=== PATIENT | female | born 1990 | race Caucasian/White ===

== ENCOUNTER 2020-02-27 12:50 | Inpatient (IN) | payer MEDICAID, OTHER ==
[~2020-02-27] VITALS: Ht 170.2 cm; Wt 99.8 kg
[~2020-02-27 12:50] MED LIST: ALBU8HFA IH; ARIP2 PO; GABA-1201 PO; METF-960 PO; MULT-950 PO
[2020-02-27 14:27] LABS: BASOPHILS % (AUTO) 0.9 % (0.0-2.0); EOSINOPHILS % (AUTO) 0.6 % (1.0-6.0); HEMATOCRIT 38.5 % (36-46); HEMOGLOBIN 12.8 g/dL (12.0-16.0); LYMPHOCYTES # (AUTO) 2.2 K/uL (1.0-4.8); LYMPHOCYTES % (AUTO) 26.5 % (22.0-44.0); MEAN CORPUSCULAR HEMOGLOBIN 28.1 pg (26.0-34.0); MEAN CORPUSCULAR HGB CONC 33.4 G/dL (31.0-37.0); MEAN CORPUSCULAR VOLUME 84 fL (80-100); MONOCYTES # (AUTO) 0.8 K/uL (0.1-1.0); MONOCYTES % (AUTO) 9.4 % (2.0-9.0); NEUTROPHILS # (AUTO) 5.3 K/uL (1.8-7.7); NEUTROPHILS % (AUTO) 62.6 % (40.0-70.0); PLATELET COUNT (AUTO) 397 K/uL (150-450); RED BLOOD CELL COUNT(AUTO) 4.58 MIL/uL (4.00-5.20); RED CELL DISTRIBUTION WIDTH 13.2 % (11.5-14.5)
[2020-02-27 14:44] LABS: ANION GAP 9 mmol/L (8-16); CALCIUM, TOTAL 9.3 mg/dL (8.8-10.5); CARBON DIOXIDE 28 mmol/L (22-29); CHLORIDE 101 mmol/L (98-107); CREATININE 0.53 mg/dL (0.60-1.30); GLOMERULAR FILTR. RATE CALC > 60 mL/min (>60); GLUCOSE,RANDOM 247 mg/dL (70-110); POTASSIUM 3.8 mmol/L (3.5-5.1); SODIUM SERUM 138 mmol/L (136-145); UREA NITROGEN, BLOOD 12 mg/dL (7-18)
[2020-02-27 15:04] LABS: ALANINE AMINOTRANSFERASE 44 U/L (12-78); ALBUMIN 3.5 g/dL (3.4-5.0); ALKALINE PHOSPHATASE 76 U/L (46-116); ASPARTATE AMINOTRANSFERASE 12 U/L (15-37); BILIRUBIN,TOTAL 0.4 mg/dL (0.1-1.0); TOTAL PROTEIN, SERUM 7.9 g/dL (6.4-8.2)
[2020-02-27 15:11] LABS: AMPHET/METH SCREEN,URINE POSITIVE (NEGATIVE); BARBITURATE SCREEN, URINE NEGATIVE (NEGATIVE); BENZODIAZEPINES SCREEN,URINE NEGATIVE (NEGATIVE); CANNABINOID SCREEN,URINE POSITIVE (NEGATIVE); COCAINE SCREEN,URINE NEGATIVE (NEGATIVE); METHADONE SCREEN, URINE NEGATIVE (NEGATIVE); OPIATE SCREEN,URINE NEGATIVE (NEGATIVE)
[2020-02-27 15:15] LABS: PHENCYCLIDINE SCREEN,URINE NEGATIVE (NEGATIVE)
[2020-02-27] MEDS ORDERED: HALOPERIDOL 5 MG TABLET PO ONE (16:45)
[2020-02-27] MEDS ORDERED: LORazepam 2 MG TABLET PO ONE (16:45)
[2020-02-27 17:23] LABS: HCG,QUANTITATIVE < 1 mIU/mL (0-6)
[2020-02-27] MEDS ORDERED: DiphenhydrAMINE HCL 25 MG CAPSULE PO ONE (18:15)
[2020-02-27] MEDS ORDERED: CloNIDine HCL 0.1 MG TABLET PO PRN (20:45)
[2020-02-27] MEDS ORDERED: ALBUTEROL SULFATE HFA 90 MCG/PUFF 8 GM INHALER IH PRN (20:45)
[2020-02-27] MEDS ORDERED: GuaiFENesin/D-METHORPHAN [SUGAR-FREE] 200-20MG/10 ML SYRUP UDCUP PO PRN (20:45)
[2020-02-27] MEDS ORDERED: ONDANSETRON HCL 4 MG TABLET PO PRN (20:45)
[2020-02-27] MEDS ORDERED: MAGNESIUM HYDROXIDE SUSPENSION 30 ML UDCUP PO PRN (20:45)
[2020-02-27] MEDS ORDERED: ACETAMINOPHEN 325 MG TABLET PO PRN (20:45)
[2020-02-27] MEDS ORDERED: LOPERAMIDE HCL 2 MG CAPSULE PO PRN (20:45)
[2020-02-27] MEDS ORDERED: PETROLATUM,WHITE 28 GM JELLY TP PRN (20:45)
[2020-02-27] MEDS ORDERED: MAG HYDROX/AL HYDROX/SIMETH ES 30 ML SUSPENSION UDCUP PO PRN (20:45)
[2020-02-27 22:01] VITALS: BP 110/70
[2020-02-27 22:20] LABS: GLUCOSE,POINT OF CARE 252 MG/DL (70-110)
[2020-02-27 23:20] LABS: GLUCOMETER DEV NAME(LOC) BV3S.; GLUCOSE,POINT OF CARE 231 MG/DL (70-110)
[2020-02-28] MEDS ORDERED: PNEUMOCOCCAL VACCINE POLYVALENT 0.5 ML VIAL [PPSV23] IM ONE (00:30)
[2020-02-28] MEDS: IBUPROFEN 400 MG TABLET PO PRN ×2 (03:38→20:59)
[2020-02-28] MEDS: LORazepam 2 MG TABLET PO PRN ×2 (04:13→10:10)
[2020-02-28] MEDS: DOCUSATE SODIUM 100 MG CAPSULE PO PRN (04:13)
[2020-02-28 04:14] VITALS: BP 115/71
[2020-02-28] MEDS ORDERED: DiphenhydrAMINE HCL 50 MG/ML VIAL ONE (04:52)
[2020-02-28] MEDS ORDERED: HALOPERIDOL LACTATE 5 MG/ML VIAL ONE (04:52)
[2020-02-28] MEDS ORDERED: DiphenhydrAMINE HCL 50 MG/ML VIAL IM ONE (05:00)
[2020-02-28] MEDS ORDERED: HALOPERIDOL LACTATE 5 MG/ML VIAL IM ONE (05:00)
[2020-02-28 08:27] VITALS: BP 118/74
[2020-02-28] MEDS: MULTIVITAMINS, THERAPEUTIC TABLET PO SCH (08:59)
[2020-02-28] MEDS: NICOTINE 14 MG/24 HOUR PATCH TD PRN (09:21)
[2020-02-28] MEDS: HALOPERIDOL 5 MG TABLET PO PRN ×2 (10:10→16:50)
[2020-02-28] MEDS: GlipiZIDE 5 MG TABLET PO SCH (16:50)
[2020-02-28] MEDS: PRAZOSIN HCL 2 MG CAPSULE PO SCH (20:24)
[2020-02-28] MEDS: BusPIRone HCL 10 MG TABLET PO SCH (20:24)
[2020-02-28] MEDS: OLANZapine 10 MG TABLET PO SCH (20:24)
[2020-02-28 20:59] VITALS: BP 123/70
[2020-02-29] MEDS: GlipiZIDE 5 MG TABLET PO SCH ×2 (06:22→16:40)
[2020-02-29] MEDS: HALOPERIDOL 5 MG TABLET PO PRN ×2 (06:27→21:01)
[2020-02-29] MEDS: LORazepam 2 MG TABLET PO PRN ×2 (06:27→20:24)
[2020-02-29 06:46] LABS: GLUCOMETER DEV NAME(LOC) BV3S.; GLUCOSE,POINT OF CARE 148 MG/DL (70-110)
[2020-02-29 08:19] LABS: BASOPHILS % (AUTO) 1.1 % (0.0-2.0); EOSINOPHILS % (AUTO) 1.6 % (1.0-6.0); HEMATOCRIT 39.4 % (36-46); HEMOGLOBIN 13.1 g/dL (12.0-16.0); LYMPHOCYTES % (AUTO) 44.1 % (22.0-44.0); MEAN CORPUSCULAR HEMOGLOBIN 27.9 pg (26.0-34.0); MEAN CORPUSCULAR HGB CONC 33.3 G/dL (31.0-37.0); MEAN CORPUSCULAR VOLUME 84 fL (80-100); MONOCYTES # (AUTO) 0.5 K/uL (0.1-1.0); NEUTROPHILS # (AUTO) 3.1 K/uL (1.8-7.7); NEUTROPHILS % (AUTO) 45.2 % (40.0-70.0); PLATELET COUNT (AUTO) 376 K/uL (150-450); RED BLOOD CELL COUNT(AUTO) 4.71 MIL/uL (4.00-5.20); RED CELL DISTRIBUTION WIDTH 13.3 % (11.5-14.5)
[2020-02-29 08:34] LABS: HEMOGLOBIN A1C 8.9 % (3.8-5.6)
[2020-02-29 08:50] LABS: ALANINE AMINOTRANSFERASE 39 U/L (12-78); ALBUMIN 3.2 g/dL (3.4-5.0); ALKALINE PHOSPHATASE 75 U/L (46-116); ANION GAP 11 mmol/L (8-16); ASPARTATE AMINOTRANSFERASE 17 U/L (15-37); BILIRUBIN,TOTAL 0.4 mg/dL (0.1-1.0); CALCIUM, TOTAL 8.8 mg/dL (8.8-10.5); CARBON DIOXIDE 23 mmol/L (22-29); CHLORIDE 101 mmol/L (98-107); CHOL/HDL RATIO 4.5 (3.9-5.7); CHOLESTEROL 113 mg/dL (131-200); CREATININE 0.61 mg/dL (0.60-1.30); GLOMERULAR FILTR. RATE CALC > 60 mL/min (>60); GLUCOSE,RANDOM 176 mg/dL (70-110); HDL CHOLESTEROL 25 mg/dL (40-60); LDL CHOL (CALC.) 63 mg/dL (0-130); POTASSIUM 4.3 mmol/L (3.5-5.1); SODIUM SERUM 135 mmol/L (136-145); THYROID STIMULATING HORMONE 1.73 uIU/mL (0.36-3.74); TOTAL PROTEIN, SERUM 7.6 g/dL (6.4-8.2); TRIGLYCERIDES 126 mg/dL (15-150); UREA NITROGEN, BLOOD 14 mg/dL (7-18)
[2020-02-29] MEDS: MULTIVITAMINS, THERAPEUTIC TABLET PO SCH (09:05)
[2020-02-29] MEDS: BusPIRone HCL 10 MG TABLET PO SCH ×2 (09:05→20:23)
[2020-02-29] MEDS: NICOTINE 14 MG/24 HOUR PATCH TD PRN (10:01)
[2020-02-29] MEDS: PRAZOSIN HCL 2 MG CAPSULE PO SCH (20:23)
[2020-02-29] MEDS: OLANZapine 10 MG TABLET PO SCH (20:23)
[2020-02-29 20:36] LABS: GLUCOMETER DEV NAME(LOC) BV3S.; GLUCOSE,POINT OF CARE 191 MG/DL (70-110)
[2020-02-29] MEDS: ZOLPIDEM TARTRATE 10 MG TABLET PO PRN (21:01)
[2020-03-01] MEDS: GlipiZIDE 5 MG TABLET PO SCH ×3 (07:11→17:16)
[2020-03-01] MEDS: BusPIRone HCL 10 MG TABLET PO SCH ×2 (08:02→20:08)
[2020-03-01] MEDS: MULTIVITAMINS, THERAPEUTIC TABLET PO SCH (08:02)
[2020-03-01] MEDS: NICOTINE 14 MG/24 HOUR PATCH TD PRN (08:07)
[2020-03-01] MEDS: LORazepam 2 MG TABLET PO PRN ×3 (08:42→19:59)
[2020-03-01] MEDS: IBUPROFEN 400 MG TABLET PO PRN (08:42)
[2020-03-01] MEDS: HALOPERIDOL 5 MG TABLET PO PRN ×2 (08:54→13:44)
[2020-03-01] MEDS ORDERED: DiphenhydrAMINE HCL 50 MG/ML VIAL IM ONE (14:45)
[2020-03-01] MEDS ORDERED: HALOPERIDOL LACTATE 5 MG/ML VIAL IM ONE (14:45)
[2020-03-01 16:09] VITALS: BP 100/54
[2020-03-01] MEDS: OLANZapine 10 MG TABLET PO SCH (20:07)
[2020-03-01 20:35] LABS: GLUCOMETER DEV NAME(LOC) BV3S.; GLUCOSE,POINT OF CARE 212 MG/DL (70-110)
[2020-03-01] MEDS: PRAZOSIN HCL 2 MG CAPSULE PO SCH (21:00)
[2020-03-02] MEDS: GlipiZIDE 5 MG TABLET PO SCH ×2 (06:27→16:41)
[2020-03-02] MEDS: NICOTINE 21 MG/24 HOUR PATCH TD SCH (08:40)
[2020-03-02] MEDS: BusPIRone HCL 10 MG TABLET PO SCH ×2 (08:40→20:28)
[2020-03-02] MEDS: MULTIVITAMINS, THERAPEUTIC TABLET PO SCH (08:40)
[2020-03-02] MEDS: LORazepam 2 MG TABLET PO PRN ×3 (08:54→17:13)
[2020-03-02] MEDS: HALOPERIDOL 5 MG TABLET PO PRN ×2 (08:54→12:55)
[2020-03-02 09:08] VITALS: BP 129/67
[2020-03-02] MEDS: IBUPROFEN 400 MG TABLET PO PRN ×2 (09:10→17:13)
[2020-03-02] MEDS: DOCUSATE SODIUM 100 MG CAPSULE PO PRN (09:40)
[2020-03-02 17:19] VITALS: BP 106/85
[2020-03-02] MEDS ORDERED: LORazepam 2 MG/ML VIAL ONE (17:57)
[2020-03-02] MEDS ORDERED: DiphenhydrAMINE HCL 50 MG/ML VIAL IM ONE (18:00)
[2020-03-02] MEDS ORDERED: HALOPERIDOL LACTATE 5 MG/ML VIAL IM ONE (18:00)
[2020-03-02] MEDS ORDERED: LORazepam 2 MG/ML VIAL IM ONE (18:00)
[2020-03-02] MEDS: OLANZapine 10 MG TABLET PO SCH (20:28)
[2020-03-02] MEDS: PRAZOSIN HCL 2 MG CAPSULE PO SCH (20:28)
[2020-03-02] MEDS: ZOLPIDEM TARTRATE 10 MG TABLET PO PRN (20:28)
[2020-03-02 23:58] LABS: GLUCOMETER DEV NAME(LOC) BV3S.; GLUCOSE,POINT OF CARE 296 MG/DL (70-110)
[2020-03-03] MEDS: GlipiZIDE 5 MG TABLET PO SCH ×2 (06:27→16:35)
[2020-03-03] MEDS ORDERED: DiphenhydrAMINE HCL 25 MG CAPSULE PO SCH (09:00)
[2020-03-03] MEDS ORDERED: GABAPENTIN 400 MG CAPSULE PO SCH (09:00)
[2020-03-03] MEDS: BusPIRone HCL 10 MG TABLET PO SCH ×2 (09:23→20:05)
[2020-03-03] MEDS: MULTIVITAMINS, THERAPEUTIC TABLET PO SCH (09:24)
[2020-03-03] MEDS: LORazepam 2 MG TABLET PO PRN ×3 (09:26→21:11)
[2020-03-03] MEDS: IBUPROFEN 400 MG TABLET PO PRN (09:38)
[2020-03-03] MEDS: NICOTINE 21 MG/24 HOUR PATCH TD SCH (09:41)
[2020-03-03 09:48] VITALS: BP 112/72
[2020-03-03] MEDS: HALOPERIDOL 5 MG TABLET PO PRN ×2 (10:49→15:08)
[2020-03-03 11:13] LABS: GLUCOMETER DEV NAME(LOC) BV3S.; GLUCOSE,POINT OF CARE 311 MG/DL (70-110)
[2020-03-03 16:00] VITALS: BP 136/72
[2020-03-03] MEDS: RisperiDONE 1 MG TABLET PO SCH (17:00)
[2020-03-03] MEDS: DiphenhydrAMINE HCL 25 MG CAPSULE PO SCH (17:01)
[2020-03-03] MEDS: GABAPENTIN 400 MG CAPSULE PO SCH (17:01)
[2020-03-03 17:40] LABS: GLUCOMETER DEV NAME(LOC) BV3S.; GLUCOSE,POINT OF CARE 258 MG/DL (70-110)
[2020-03-03] MEDS: PRAZOSIN HCL 2 MG CAPSULE PO SCH (20:05)
[2020-03-03] MEDS: OLANZapine 10 MG TABLET PO SCH (20:05)
[2020-03-03] MEDS: ZOLPIDEM TARTRATE 10 MG TABLET PO PRN (21:11)
[2020-03-04] MEDS: LORazepam 2 MG TABLET PO PRN ×2 (02:48→08:38)
[2020-03-04 02:53] VITALS: BP 110/60
[2020-03-04] MEDS: GlipiZIDE 5 MG TABLET PO SCH (06:12)
[2020-03-04 08:07] VITALS: BP 123/66
[2020-03-04] MEDS: NICOTINE 21 MG/24 HOUR PATCH TD SCH (08:07)
[2020-03-04] MEDS: BusPIRone HCL 10 MG TABLET PO SCH (08:08)
[2020-03-04] MEDS: DiphenhydrAMINE HCL 25 MG CAPSULE PO SCH (08:08)
[2020-03-04] MEDS: MULTIVITAMINS, THERAPEUTIC TABLET PO SCH (08:08)
[2020-03-04] MEDS: GABAPENTIN 400 MG CAPSULE PO SCH (08:08)
[2020-03-04] MEDS: RisperiDONE 1 MG TABLET PO SCH (08:08)
[2020-03-04] MEDS ORDERED: OLAN10TA20 PO (09:24)
[2020-03-04] MEDS ORDERED: PRAZ2 PO (09:24)
[2020-03-04] MEDS ORDERED: BUSP10TA23 PO (09:24)
[2020-03-04] MEDS ORDERED: RISP1TAB89 PO (09:24)
[2020-03-04] MEDS ORDERED: DIPH25 PO (09:24)
[2020-03-04] MEDS ORDERED: GLIP5 PO (10:07)
== END 2020-03-04 15:00 | disposition home or self-care (01) | DRG 750 ==
LOC: EMS 12:53 → B3A 19:30
DX: F20.0 Paranoid schizophrenia (principal); E11.9 Type 2 diabetes mellitus without complications; D64.9 Anemia, unspecified; F12.10 Cannabis abuse, uncomplicated; F15.10 Other stimulant abuse, uncomplicated; E66.9 Obesity, unspecified; F43.12 Post-traumatic stress disorder, chronic; I10 Essential (primary) hypertension; J45.909 Unspecified asthma, uncomplicated; Z68.34 Body mass index [BMI] 34.0-34.9, adult; Z88.6 Allergy status to analgesic agent; Z91.013 Allergy to seafood; Z88.8 Allergy status to other drugs, medicaments and biological substances; F32.9 Major depressive disorder, single episode, unspecified; F19.10 Other psychoactive substance abuse, uncomplicated; Z79.899 Other long term (current) drug therapy; Z91.14 Patient's other noncompliance with medication regimen; Z28.21 Immunization not carried out because of patient refusal
CPT/HCPCS: 83036; 84443; G0480; J1200; J1630; J2060

== ENCOUNTER 2020-02-29 11:43 | Emergency (ER) | payer MEDICAID, OTHER ==
[~2020-02-29] VITALS: Ht 167.6 cm; Wt 113.6 kg
[2020-02-29 13:00] VITALS: BP 112/58
== END 2020-02-29 13:30 | disposition other institution (70) ==
LOC: EMS 11:46
DX: F25.9 Schizoaffective disorder, unspecified (principal); J45.909 Unspecified asthma, uncomplicated; F32.9 Major depressive disorder, single episode, unspecified; E11.9 Type 2 diabetes mellitus without complications; I10 Essential (primary) hypertension; F12.90 Cannabis use, unspecified, uncomplicated; Z88.5 Allergy status to narcotic agent; Z91.013 Allergy to seafood; Z88.8 Allergy status to other drugs, medicaments and biological substances; Z91.018 Allergy to other foods

== ENCOUNTER 2022-04-19 23:58 | Inpatient (IN) | payer MEDICAID ==
[~2022-04-19] VITALS: Ht 165.1 cm; Wt 90.9 kg
[~2022-04-19 23:58] MED LIST changes: -ALBU8HFA IH; -ARIP2 PO; +BUSP10TA23 PO; +DIPH25 PO; -GABA-1201 PO; +GLIP5TAB12 PO; -METF-960 PO; -MULT-950 PO; +OLAN10 PO; +PRAZ2 PO; +RISP1TAB89 PO
[2022-04-20] MEDS ORDERED: LORazepam 2 MG TABLET PO ONE (00:45)
[2022-04-20] MEDS ORDERED: HALOPERIDOL 5 MG TABLET PO ONE (00:45)
[2022-04-20 01:00] LABS: COVID AG,FIA SOURCE NASOPHARYNGEAL
[2022-04-20] MEDS ORDERED: DiphenhydrAMINE HCL 50 MG CAPSULE PO ONE (01:00)
[2022-04-20 01:06] LABS: BASOPHILS % (AUTO) 1.4 % (0.0-2.0); EOSINOPHILS % (AUTO) 0.7 % (1.0-6.0); HEMATOCRIT 35.8 % (36-46); HEMOGLOBIN 11.8 g/dL (12.0-16.0); LYMPHOCYTES # (AUTO) 3.8 K/uL (1.0-4.8); LYMPHOCYTES % (AUTO) 25.7 % (22.0-44.0); MEAN CORPUSCULAR VOLUME 85 fL (80-100); MONOCYTES # (AUTO) 0.7 K/uL (0.1-1.0); MONOCYTES % (AUTO) 4.8 % (2.0-9.0); NEUTROPHILS # (AUTO) 9.9 K/uL (1.8-7.7); NEUTROPHILS % (AUTO) 67.4 % (40.0-70.0); PLATELET COUNT (AUTO) 380 K/uL (150-450); RED BLOOD CELL COUNT(AUTO) 4.22 MIL/uL (4.00-5.20); RED CELL DISTRIBUTION WIDTH 13.2 % (11.5-14.5)
[2022-04-20 01:14] LABS: ANION GAP 14 mmol/L (8-16); CARBON DIOXIDE 25 mmol/L (22-29); CHLORIDE 96 mmol/L (98-107); CREATININE 0.57 mg/dL (0.60-1.30); GLUCOSE,RANDOM 306 mg/dL (70-110); POTASSIUM 3.7 mmol/L (3.5-5.1); SODIUM SERUM 135 mmol/L (136-145); UREA NITROGEN, BLOOD 6 mg/dL (7-18)
[2022-04-20 01:18] LABS: AMPHET/METH SCREEN,URINE NEGATIVE (NEGATIVE); BARBITURATE SCREEN, URINE NEGATIVE (NEGATIVE); BENZODIAZEPINES SCREEN,URINE NEGATIVE (NEGATIVE); CANNABINOID SCREEN,URINE NEGATIVE (NEGATIVE); COCAINE SCREEN,URINE NEGATIVE (NEGATIVE); METHADONE SCREEN, URINE NEGATIVE (NEGATIVE); OPIATE SCREEN,URINE NEGATIVE (NEGATIVE)
[2022-04-20 01:20] LABS: ALANINE AMINOTRANSFERASE 43 U/L (12-78); ALBUMIN 3.4 g/dL (3.4-5.0); ALKALINE PHOSPHATASE 86 U/L (46-116); ASPARTATE AMINOTRANSFERASE 21 U/L (15-37); BILIRUBIN,TOTAL 0.3 mg/dL (0.1-1.0); CALCIUM, TOTAL 8.9 mg/dL (8.8-10.5); TOTAL PROTEIN, SERUM 7.4 g/dL (6.4-8.2)
[2022-04-20 01:21] LABS: GLOMERULAR FILTR. RATE CALC > 60 mL/min (>60)
[2022-04-20 01:21] LABS: PHENCYCLIDINE SCREEN,URINE NEGATIVE (NEGATIVE)
[2022-04-20 07:36] LABS: GLUCOSE,POINT OF CARE 273 MG/DL (70-110)
[2022-04-20] MEDS: LORazepam 2 MG TABLET PO PRN (07:42)
[2022-04-20] MEDS: HALOPERIDOL 5 MG TABLET PO PRN (07:42)
[2022-04-20] MEDS ORDERED: SitaGLIPtin PHOSPHATE 25 MG TABLET PO ONE (07:45)
[2022-04-20] MEDS ORDERED: OLANZapine 5 MG TABLET PO ONE (08:45)
[2022-04-20] MEDS ORDERED: RisperiDONE 1 MG TABLET PO ONE (08:45)
[2022-04-20] MEDS ORDERED: DiphenhydrAMINE HCL 50 MG/ML VIAL IM ONE (15:45)
[2022-04-20] MEDS ORDERED: DIAZEPAM 5 MG/ML 2 ML SYRINGE IM ONE (15:45)
[2022-04-20] MEDS ORDERED: HALOPERIDOL LACTATE 5 MG/ML VIAL IM ONE (15:45)
[2022-04-20] MEDS ORDERED: INSULIN REGULAR, HUMAN 100 UNITS/ML SQ ONE (17:00)
[2022-04-21] MEDS: LORazepam 2 MG TABLET PO PRN ×4 (05:21→18:13)
[2022-04-21] MEDS: HALOPERIDOL 5 MG TABLET PO PRN ×4 (05:21→18:13)
[2022-04-21 16:13] VITALS: BP 130/80
[2022-04-21] MEDS ORDERED: ALBUTEROL SULFATE HFA 90 MCG/PUFF 8 GM INHALER IH PRN (20:45)
[2022-04-21] MEDS ORDERED: MAGNESIUM HYDROXIDE SUSPENSION 30 ML UDCUP PO PRN (20:45)
[2022-04-21] MEDS ORDERED: DEXTROSE 50%-WATER 25 GM/50 ML SYRINGE IVP PRN (20:45)
[2022-04-21] MEDS ORDERED: BACITRACIN 28 GM OINTMENT TP PRN (20:45)
[2022-04-21] MEDS ORDERED: DOCUSATE SODIUM 100 MG CAPSULE PO PRN (20:45)
[2022-04-21] MEDS ORDERED: ACETAMINOPHEN 325 MG TABLET PO PRN (20:45)
[2022-04-21] MEDS ORDERED: PETROLATUM,WHITE 28 GM JELLY TP PRN (20:45)
[2022-04-21] MEDS ORDERED: BENZOCAINE/MENTHOL LOZENGE PO PRN (20:45)
[2022-04-21] MEDS ORDERED: MAG HYDROX/AL HYDROX/SIMETH ES 30 ML SUSPENSION UDCUP PO PRN (20:45)
[2022-04-21] MEDS ORDERED: LOPERAMIDE HCL 2 MG CAPSULE PO PRN (20:45)
[2022-04-21] MEDS ORDERED: ONDANSETRON HCL 4 MG TABLET PO PRN (20:45)
[2022-04-21] MEDS ORDERED: IBUPROFEN 600 MG TABLET PO PRN (20:45)
[2022-04-21] MEDS ORDERED: CloNIDine HCL 0.1 MG TABLET PO PRN (20:45)
[2022-04-21] MEDS ORDERED: OMEPRAZOLE 20 MG CAPSULE PO PRN (20:45)
[2022-04-21] MEDS ORDERED: INSULIN LISPRO 100 UNITS/ML SQ PRN (20:45)
[2022-04-21] MEDS: ZOLPIDEM TARTRATE 10 MG TABLET PO PRN (21:11)
[2022-04-22 05:56] LABS: GLUCOMETER DEV NAME(LOC) 3E.C; GLUCOSE,POINT OF CARE 339 MG/DL (70-110)
[2022-04-22] MEDS: GlipiZIDE 5 MG TABLET PO SCH ×2 (06:22→16:37)
[2022-04-22] MEDS: LORazepam 2 MG TABLET PO PRN ×4 (07:20→19:47)
[2022-04-22] MEDS: HALOPERIDOL 5 MG TABLET PO PRN ×4 (07:20→19:47)
[2022-04-22 08:53] VITALS: BP 143/97
[2022-04-22 11:11] LABS: GLUCOMETER DEV NAME(LOC) 3E.C; GLUCOSE,POINT OF CARE 300 MG/DL (70-110)
[2022-04-22 16:46] LABS: GLUCOMETER DEV NAME(LOC) 3E.C; GLUCOSE,POINT OF CARE 417 MG/DL (70-110)
[2022-04-22] MEDS ORDERED: DEXTROSE 50%-WATER 25 GM/50 ML SYRINGE IVP PRN (17:15)
[2022-04-22] MEDS: INSULIN LISPRO 100 UNITS/ML SQ PRN ×2 (17:16→20:19)
[2022-04-22] MEDS: INSULIN GLARGINE,HUM.REC.ANLOG 100 UNITS/ML SQ SCH (20:20)
[2022-04-22 20:25] LABS: GLUCOMETER DEV NAME(LOC) 3E.C; GLUCOSE,POINT OF CARE 210 MG/DL (70-110)
[2022-04-22] MEDS: ZOLPIDEM TARTRATE 10 MG TABLET PO PRN (21:06)
[2022-04-22] MEDS: RisperiDONE 3 MG TABLET PO SCH ×2 (21:15→23:24)
[2022-04-22] MEDS: LITHIUM CARBONATE 300 MG CAPSULE PO SCH ×2 (21:15→23:25)
[2022-04-22] MEDS: DIVALPROEX SODIUM 500 MG DR TABLET PO SCH (21:15)
[2022-04-23] MEDS: HALOPERIDOL 5 MG TABLET PO PRN ×4 (03:00→22:39)
[2022-04-23] MEDS: LORazepam 2 MG TABLET PO PRN ×4 (03:00→22:39)
[2022-04-23 06:21] LABS: GLUCOMETER DEV NAME(LOC) 3E.C; GLUCOSE,POINT OF CARE 293 MG/DL (70-110)
[2022-04-23] MEDS: INSULIN LISPRO 100 UNITS/ML SQ PRN ×3 (06:41→20:19)
[2022-04-23] MEDS: GlipiZIDE 5 MG TABLET PO SCH ×2 (06:42→16:30)
[2022-04-23] MEDS: RisperiDONE 3 MG TABLET PO SCH ×3 (08:01→19:59)
[2022-04-23] MEDS: LITHIUM CARBONATE 300 MG CAPSULE PO SCH ×3 (08:01→19:59)
[2022-04-23] MEDS: DIVALPROEX SODIUM 500 MG DR TABLET PO SCH ×3 (08:01→20:00)
[2022-04-23 08:30] VITALS: BP 156/89
[2022-04-23 08:42] LABS: HEMOGLOBIN A1C 11.7 % (3.8-5.6)
[2022-04-23 08:56] LABS: CHOL/HDL RATIO 5.4 (3.9-5.7); THYROID STIMULATING HORMONE 2.08 uIU/mL (0.36-3.74)
[2022-04-23 11:42] LABS: GLUCOMETER DEV NAME(LOC) 3E.C; GLUCOSE,POINT OF CARE 301 MG/DL (70-110)
[2022-04-23 16:51] VITALS: BP 143/89
[2022-04-23 16:52] VITALS: BP 143/89
[2022-04-23 17:10] LABS: APPEARANCE,URINE CLEAR (CLEAR); BILIRUBIN,URINE NEGATIVE (NEGATIVE); GLUCOSE, URINE (UA) 70-100 mg/dL (NEGATIVE); KETONES,URINE NEGATIVE (NEGATIVE); LEUKOCYTE ESTERASE ,URINE NEGATIVE (NEGATIVE); NITRATE,URINE NEGATIVE (NEGATIVE); OCCULT BLOOD,URINE NEGATIVE (NEGATIVE); PH,URINE 6.5 (5.0-8.0); PROTEIN,URINE NEGATIVE (NEGATIVE); SPECIFIC GRAVITIY, URINE 1.008 (1.003-1.030); UROBILINOGEN,URINE <=1.0 mg/dL (<=1.0)
[2022-04-23 18:26] LABS: BACTERIA,URINE None Seen /HPF (None Seen); RBC,URINE None Seen /HPF (0-2); SQUAMOUS EPITHELIAL CELL,UR Rare /LPF (None Seen); WBC,URINE None Seen /HPF (0-5)
[2022-04-23] MEDS: INSULIN GLARGINE,HUM.REC.ANLOG 100 UNITS/ML SQ SCH (20:18)
[2022-04-23 20:36] LABS: GLUCOMETER DEV NAME(LOC) 3E.C; GLUCOSE,POINT OF CARE 353 MG/DL (70-110)
[2022-04-23] MEDS: ZOLPIDEM TARTRATE 10 MG TABLET PO PRN (20:38)
[2022-04-23 21:23] VITALS: BP 141/86
[2022-04-24] MEDS: HALOPERIDOL 5 MG TABLET PO PRN ×4 (02:45→17:08)
[2022-04-24 06:12] LABS: GLUCOMETER DEV NAME(LOC) 3E.C; GLUCOSE,POINT OF CARE 263 MG/DL (70-110)
[2022-04-24] MEDS: GlipiZIDE 5 MG TABLET PO SCH ×2 (06:42→17:08)
[2022-04-24] MEDS: INSULIN LISPRO 100 UNITS/ML SQ PRN ×3 (06:42→21:30)
[2022-04-24] MEDS: LORazepam 2 MG TABLET PO PRN ×4 (06:46→21:53)
[2022-04-24] MEDS: RisperiDONE 3 MG TABLET PO SCH ×2 (08:36→21:43)
[2022-04-24] MEDS: DIVALPROEX SODIUM 500 MG DR TABLET PO SCH ×2 (08:36→21:43)
[2022-04-24 08:48] VITALS: BP 139/89
[2022-04-24] MEDS: LITHIUM CARBONATE 300 MG CAPSULE PO SCH ×2 (09:00→21:00)
[2022-04-24 11:31] LABS: GLUCOMETER DEV NAME(LOC) 3E.C; GLUCOSE,POINT OF CARE 294 MG/DL (70-110)
[2022-04-24] MEDS: NICOTINE 21 MG/24 HOUR PATCH TD PRN (14:03)
[2022-04-24 16:09] VITALS: BP 101/66
[2022-04-24] MEDS: INSULIN GLARGINE,HUM.REC.ANLOG 100 UNITS/ML SQ SCH (21:30)
[2022-04-24 21:56] LABS: GLUCOMETER DEV NAME(LOC) 3E.C; GLUCOSE,POINT OF CARE 347 MG/DL (70-110)
[2022-04-24] MEDS: ZOLPIDEM TARTRATE 10 MG TABLET PO PRN (22:25)
[2022-04-25 00:15] VITALS: BP 134/82
[2022-04-25] MEDS: HALOPERIDOL 5 MG TABLET PO PRN ×4 (02:54→17:39)
[2022-04-25 05:46] LABS: GLUCOMETER DEV NAME(LOC) 3E.C; GLUCOSE,POINT OF CARE 306 MG/DL (70-110)
[2022-04-25] MEDS: GlipiZIDE 5 MG TABLET PO SCH ×2 (06:02→17:37)
[2022-04-25] MEDS: INSULIN LISPRO 100 UNITS/ML SQ PRN ×3 (06:38→22:32)
[2022-04-25] MEDS: LORazepam 2 MG TABLET PO PRN ×4 (08:25→21:59)
[2022-04-25] MEDS: DIVALPROEX SODIUM 500 MG DR TABLET PO SCH ×3 (08:25→22:28)
[2022-04-25] MEDS: RisperiDONE 3 MG TABLET PO SCH ×3 (08:25→22:28)
[2022-04-25] MEDS: LITHIUM CARBONATE 300 MG CAPSULE PO SCH ×3 (08:26→22:28)
[2022-04-25 09:53] VITALS: BP 137/94
[2022-04-25] MEDS: NICOTINE 21 MG/24 HOUR PATCH TD PRN (15:52)
[2022-04-25 16:00] VITALS: BP 108/71
[2022-04-25] MEDS: ZOLPIDEM TARTRATE 10 MG TABLET PO PRN (19:30)
[2022-04-25] MEDS: INSULIN GLARGINE,HUM.REC.ANLOG 100 UNITS/ML SQ SCH ×2 (21:00→22:36)
[2022-04-25 22:51] LABS: GLUCOMETER DEV NAME(LOC) 3E.C; GLUCOSE,POINT OF CARE 336 MG/DL (70-110)
[2022-04-26] MEDS: HALOPERIDOL 5 MG TABLET PO PRN ×4 (03:53→16:02)
[2022-04-26] MEDS: GlipiZIDE 5 MG TABLET PO SCH ×2 (06:38→16:02)
[2022-04-26 06:45] LABS: COVID AG,FIA SOURCE NASAL SWAB
[2022-04-26] MEDS: INSULIN LISPRO 100 UNITS/ML SQ PRN ×2 (07:05→16:32)
[2022-04-26] MEDS: LITHIUM CARBONATE 300 MG CAPSULE PO SCH ×2 (07:09→20:01)
[2022-04-26] MEDS: RisperiDONE 3 MG TABLET PO SCH ×2 (07:09→20:01)
[2022-04-26] MEDS: LORazepam 2 MG TABLET PO PRN ×3 (07:10→18:12)
[2022-04-26] MEDS: DIVALPROEX SODIUM 500 MG DR TABLET PO SCH ×2 (07:10→20:04)
[2022-04-26 07:16] LABS: GLUCOMETER DEV NAME(LOC) 3E.C; GLUCOSE,POINT OF CARE 305 MG/DL (70-110)
[2022-04-26 09:03] VITALS: BP 124/83
[2022-04-26] MEDS: NICOTINE 21 MG/24 HOUR PATCH TD PRN (11:20)
[2022-04-26 11:21] LABS: GLUCOMETER DEV NAME(LOC) 3E.C; GLUCOSE,POINT OF CARE 312 MG/DL (70-110)
[2022-04-26] MEDS: ZOLPIDEM TARTRATE 10 MG TABLET PO PRN ×3 (12:03→20:02)
[2022-04-26 16:09] VITALS: BP 132/87
[2022-04-26 16:40] LABS: GLUCOMETER DEV NAME(LOC) 3E.C; GLUCOSE,POINT OF CARE 280 MG/DL (70-110)
[2022-04-26] MEDS: INSULIN GLARGINE,HUM.REC.ANLOG 100 UNITS/ML SQ SCH (20:04)
[2022-04-26 20:08] VITALS: BP 142/85
[2022-04-27] MEDS: HALOPERIDOL 5 MG TABLET PO PRN ×4 (03:55→18:46)
[2022-04-27] MEDS: LORazepam 2 MG TABLET PO PRN ×4 (03:55→17:43)
[2022-04-27 06:26] LABS: GLUCOMETER DEV NAME(LOC) 3E.C; GLUCOSE,POINT OF CARE 262 MG/DL (70-110)
[2022-04-27] MEDS: INSULIN LISPRO 100 UNITS/ML SQ PRN ×4 (06:45→20:03)
[2022-04-27] MEDS: GlipiZIDE 5 MG TABLET PO SCH ×2 (06:46→16:14)
[2022-04-27 06:49] LABS: VALPROIC ACID 23 mcg/mL (50-100)
[2022-04-27 07:11] LABS: LITHIUM < 0.20 mmol/L (0.60-1.20)
[2022-04-27] MEDS: RisperiDONE 3 MG TABLET PO SCH ×2 (08:07→20:03)
[2022-04-27] MEDS: DIVALPROEX SODIUM 500 MG DR TABLET PO SCH ×2 (08:07→20:03)
[2022-04-27 08:13] VITALS: BP 135/86
[2022-04-27] MEDS: LITHIUM CARBONATE 300 MG CAPSULE PO SCH ×2 (09:00→20:03)
[2022-04-27] MEDS: NICOTINE 21 MG/24 HOUR PATCH TD PRN (11:11)
[2022-04-27 11:22] LABS: GLUCOMETER DEV NAME(LOC) 3E.C; GLUCOSE,POINT OF CARE 279 MG/DL (70-110)
[2022-04-27 16:01] LABS: GLUCOMETER DEV NAME(LOC) 3E.C; GLUCOSE,POINT OF CARE 310 MG/DL (70-110)
[2022-04-27 16:03] VITALS: BP 141/82
[2022-04-27] MEDS: INSULIN GLARGINE,HUM.REC.ANLOG 100 UNITS/ML SQ SCH (20:02)
[2022-04-27] MEDS: ZOLPIDEM TARTRATE 10 MG TABLET PO PRN (20:03)
[2022-04-27 20:51] LABS: GLUCOMETER DEV NAME(LOC) 3E.C; GLUCOSE,POINT OF CARE 307 MG/DL (70-110)
[2022-04-28 04:02] VITALS: BP 115/74
[2022-04-28] MEDS: HALOPERIDOL 5 MG TABLET PO PRN ×3 (04:03→14:18)
[2022-04-28] MEDS: LORazepam 2 MG TABLET PO PRN ×4 (04:03→20:46)
[2022-04-28] MEDS: GlipiZIDE 5 MG TABLET PO SCH ×2 (06:49→17:02)
[2022-04-28 08:10] VITALS: BP 128/66
[2022-04-28] MEDS: DIVALPROEX SODIUM 500 MG DR TABLET PO SCH ×2 (10:13→20:35)
[2022-04-28] MEDS: RisperiDONE 3 MG TABLET PO SCH ×2 (10:13→20:36)
[2022-04-28] MEDS: LITHIUM CARBONATE 300 MG CAPSULE PO SCH ×2 (10:13→20:36)
[2022-04-28] MEDS: NICOTINE 21 MG/24 HOUR PATCH TD PRN (10:14)
[2022-04-28 12:11] LABS: GLUCOMETER DEV NAME(LOC) 3E.C; GLUCOSE,POINT OF CARE 296 MG/DL (70-110)
[2022-04-28] MEDS: INSULIN LISPRO 100 UNITS/ML SQ PRN ×3 (13:14→21:07)
[2022-04-28 16:01] LABS: GLUCOMETER DEV NAME(LOC) 3E.C; GLUCOSE,POINT OF CARE 344 MG/DL (70-110)
[2022-04-28 16:57] VITALS: BP 124/82
[2022-04-28] MEDS ORDERED: RISP3TAB63 PO (17:28)
[2022-04-28] MEDS ORDERED: DIVA-112 PO (17:28)
[2022-04-28] MEDS ORDERED: LITH300C3 PO (17:28)
[2022-04-28] MEDS: INSULIN GLARGINE,HUM.REC.ANLOG 100 UNITS/ML SQ SCH (21:07)
[2022-04-29] MEDS: HALOPERIDOL 5 MG TABLET PO PRN ×3 (04:32→11:53)
[2022-04-29] MEDS: LORazepam 2 MG TABLET PO PRN ×3 (04:33→11:53)
[2022-04-29] MEDS: GlipiZIDE 5 MG TABLET PO SCH ×2 (07:00→07:49)
[2022-04-29] MEDS: RisperiDONE 3 MG TABLET PO SCH (07:49)
[2022-04-29] MEDS: DIVALPROEX SODIUM 500 MG DR TABLET PO SCH (07:49)
[2022-04-29] MEDS: LITHIUM CARBONATE 300 MG CAPSULE PO SCH (07:49)
[2022-04-29] MEDS: INSULIN LISPRO 100 UNITS/ML SQ PRN ×2 (08:04→11:42)
[2022-04-29 08:43] LABS: GLUCOMETER DEV NAME(LOC) 3E.C; GLUCOSE,POINT OF CARE 275 MG/DL (70-110)
[2022-04-29 09:00] VITALS: BP 153/88
[2022-04-29 09:02] LABS: GLUCOMETER DEV NAME(LOC) 3E.C; GLUCOSE,POINT OF CARE 217 MG/DL (70-110)
[2022-04-29] MEDS: NICOTINE 21 MG/24 HOUR PATCH TD PRN (10:19)
[2022-04-29 11:36] LABS: GLUCOMETER DEV NAME(LOC) 3E.C; GLUCOSE,POINT OF CARE 318 MG/DL (70-110)
[2022-04-29] MEDS ORDERED: SULFAMETHOX/TRIMETH DS 800-160 MG/TABLET PO SCH (12:45)
[2022-04-29] MEDS ORDERED: SULF-261 PO (21:06)
[2022-04-29] MEDS ORDERED: INSLAN SQ (21:06)
[2022-04-29] MEDS ORDERED: PRAZ2 PO (21:07)
== END 2022-04-29 14:40 | disposition home or self-care (01) | DRG 750 ==
LOC: EMS 23:59 → 3EC 04-21 00:30
PROVIDERS: ADMIT Psychiatry & Neurology Psychiatry; ATTEND Psychiatry & Neurology Psychiatry
DX: F25.9 Schizoaffective disorder, unspecified (principal); D72.829 Elevated white blood cell count, unspecified; E11.65 Type 2 diabetes mellitus with hyperglycemia; F14.90 Cocaine use, unspecified, uncomplicated; F12.90 Cannabis use, unspecified, uncomplicated; Z20.822 Contact with and (suspected) exposure to COVID-19; F43.10 Post-traumatic stress disorder, unspecified; I10 Essential (primary) hypertension; J45.909 Unspecified asthma, uncomplicated; Z72.0 Tobacco use; Z71.6 Tobacco abuse counseling
CPT/HCPCS: 80053; 80061; 80164; 80178; 81001; 81003; 82962; 83036; 84443; 84703; 85025; 99285; G0480; J1200; J1630; J1815

== ENCOUNTER 2023-02-14 19:25 | Emergency (ER) | payer MEDICAID, OTHER ==
[~2023-02-14] VITALS: Ht 165.1 cm; Wt 89.5 kg
[~2023-02-14 19:25] MED LIST changes: +DIPH-1243 PO; -DIPH25 PO; +DIVA-112 PO; +INSLAN SQ; +LITH300C3 PO; +RISP3TAB63 PO; +SULF-261 PO
[2023-02-14 20:15] LABS: GLUCOMETER DEV NAME(LOC) ERT.5; GLUCOSE,POINT OF CARE 415 MG/DL (70-110)
[2023-02-14] MEDS ORDERED: ACETAMINOPHEN 500 MG TABLET PO ONE (22:15)
[2023-02-14] MEDS ORDERED: KETOROLAC TROMETHAMINE 30 MG/ML VIAL IM ONE (22:15)
[2023-02-14] MEDS ORDERED: IBUP-1492 PO (23:35)
[2023-02-14 23:36] VITALS: BP 138/81
== END 2023-02-14 23:54 | disposition home or self-care (01) ==
LOC: EMS 19:26
DX: S46.012A Strain of muscle(s) and tendon(s) of the rotator cuff of left shoulder, initial encounter (principal); F41.9 Anxiety disorder, unspecified; F31.9 Bipolar disorder, unspecified; E11.9 Type 2 diabetes mellitus without complications; F20.9 Schizophrenia, unspecified; F17.210 Nicotine dependence, cigarettes, uncomplicated; Z98.890 Other specified postprocedural states; Z88.6 Allergy status to analgesic agent; Z91.013 Allergy to seafood; Z91.018 Allergy to other foods; Z88.8 Allergy status to other drugs, medicaments and biological substances; X58.XXXA Exposure to other specified factors, initial encounter; Y93.89 Activity, other specified; Y92.89 Other specified places as the place of occurrence of the external cause; Y99.8 Other external cause status
CPT/HCPCS: 99283; 82962; 73030; 96372; J1885